=== PATIENT | male | born 1945 | race Caucasian/White ===

== ENCOUNTER 2022-04-20 10:18 | Day surgery (SDC) | payer MEDICARE, BC ==
[2022-04-20] MEDS ORDERED: fentaNYL 100 MCG/2 ML SDV ONE (11:08)
[2022-04-20] MEDS ORDERED: Midazolam 1 MG/ML 2 ML SDV ONE (11:08)
[2022-04-20] MEDS ORDERED: Propofol 200 MG/20 ML SDV ONE (11:09)
[2022-04-20] MEDS: Lactated Ringers 1,000 ML IV SCH (11:12)
[2022-04-20 12:24] VITALS: BP 93/60; PULSE 52
== END 2022-04-20 12:36 | disposition home or self-care (01) ==
LOC: VM.SDS 10:18
PROVIDERS: ATTEND Family Medicine
DX: Z12.11 Encounter for screening for malignant neoplasm of colon (principal); D12.0 Benign neoplasm of cecum; D12.2 Benign neoplasm of ascending colon; K57.30 Diverticulosis of large intestine without perforation or abscess without bleeding; K64.9 Unspecified hemorrhoids; I10 Essential (primary) hypertension; E66.9 Obesity, unspecified; E11.9 Type 2 diabetes mellitus without complications; E78.00 Pure hypercholesterolemia, unspecified; I35.0 Nonrheumatic aortic (valve) stenosis; Z79.82 Long term (current) use of aspirin; Z68.31 Body mass index [BMI] 31.0-31.9, adult; Z79.899 Other long term (current) drug therapy
CPT/HCPCS: 00812; J2250; J2704; J3010; J7120